=== PATIENT | male | born 1990 ===

== ENCOUNTER 2024-04-05 10:22 | Outpatient (CLI) | payer OTHER ==
--- NOTE | 2024-04-05 14:04 | MRI Report ---
PROCEDURE: Knee LT WO INDICATIONS: KNEE SPRAIN TECHNIQUE: Noncontrast sagittal PD fast spin echo and T2 fast spin echo with fat saturation, sagittal 3-D gradie nt sequence with fat saturation; coronal T1 spin echo and PD fast spin echo with fat saturation, and axial PD fast spin echo with fat saturation through the knee. COMPARISON: None. FINDINGS: Image quality: Excellent. Menisci: Signal abnormality involving posterior horn of medial meniscus is seen extending to inferior articulating surface suggestive of subtle oblique tear. The lateral meniscus is intact. The meniscal root ligaments appear intact. Cruciate ligaments: Patient is status post prior ACL reconstruction. ACL graft is grossly intact. No signal abnormality is noted within tibial tunnel or femoral tunnel. The PCL is thickened. Medial structures: The medial collateral ligament appears intact. Visualized portions of the pes ans erinus tendons appear normal. No abnormal bursal fluid. Lateral structures: The lateral collateral ligament, long and short heads of the biceps femoris tend on appear intact. The popliteus tendon appears normal. Iliotibial band appears normal. Anterior structures: The quadriceps tendon is intact. Thickened patellar tendon near its inferior pa tellar insertion is seen. Patellar alignment is normal. No femoral trochlear dysplasia or ventral tr ochlear prominence. No edema in the infrapatellar fat pad. Bones and cartilage: There is no abnormal anterior tibial translation. No bone marrow contusions or f ractures. The cartilage of the medial and lateral femorotibial compartments, as well as the patellof emoral compartment, appears normal in thickness. Joint space: There is small knee joint fluid. No Dixon's cyst. Normal appearing synovial plicae ar e incidentally noted. IMPRESSION: 1. Prior ACL repair with post surgical changes. Normal left knee alignment. No abnormal anterior tibi al translation. No acute fracture or dislocation. Articulating cartilages normal in thickness. 2. Subtle oblique tear involving posterior horn of medial meniscus extending to inferior articulating surface. The lateral meniscus is intact. 3. The ACL graft is intact. Thickened PCL concerning for PCL sprain. No full-thickness cruciate ligam ent rupture. 4. Proximal patella tendinosis at its inferior patella insertion. The quadriceps tendon is intact. 5. Small joint effusion, no loose bodies. Reviewed by: Kevin Chavira MD on 04/05/2024 2:03 PM PDT Approved by: Kevin Chavira MD on 04/05/2024 2:03 PM PDT Station ID: [id number]
== END 2024-04-05 10:23 | disposition home or self-care (01) ==
LOC: DI 10:22
PROVIDERS: ATTEND Orthopaedic Surgery
DX: S83.512D Sprain of anterior cruciate ligament of left knee, subsequent encounter (principal); S83.242A Other tear of medial meniscus, current injury, left knee, initial encounter; M67.864 Other specified disorders of tendon, left knee; M25.462 Effusion, left knee